=== PATIENT | male | born 1960 | race Caucasian/White ===

== ENCOUNTER 2025-08-13 06:55 | Emergency (ER) | payer OTHER, SELFPAY ==
[2025-08-13 06:58] VITALS: BP 164/96
--- NOTE | 2025-08-13 07:18 | ED.GENMED ---
History of Present Illness
General
Chief Complaint: Cold/Flu/URI Symptoms
Source: patient
Exam Limitations: none
Time Seen by Provider: 08/13/25 07:02
Nursing documentation reviewed up to this point in time: agreed with
History of Present Illness
History of Present Illness:
Patient is a 64-year-old male with history hypertension who presents to the emergency department with multiple episodes of sneezing and throat irritation which started yesterday afternoon. 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
had multiple episodes of sneezing and states 'I think I sneezed 100 times'. He states that this started after moving a large desk with a seem to be a cloud of 'dust'.
He had a few additional periods of sneezing once he got home last night and then started to feel that his throat was 'swollen'. He denies any true sore throat odynophagia. He denies any shortness of breath, difficulty breathing, wheezing. He has
not had any nausea, vomiting, or abdominal pain.
When he woke this morning, he states that his blood pressure was elevated and he noticed a mild redness to his face. He denies any swelling of his lips or tongue. No rash elsewhere on his body. No fevers or known sick contacts.
Past History
Past History
ED Past Medical History: None
ED Past Surgical History: Orthopedic
Social History
Tobacco: Former smoker
Alcohol: None
Drug: None
Personal:
Living: with family
Employment: Employed
Review of Systems
Review of Systems
Allergies reviewed?: Yes
All Other Systems: ROS reviewed and negative except as documented in HPI and ROS
Phy Exam
Physical Exam
Physical Exam:
Vitals: Hypertensive, otherwise vital signs stable. Afebrile
General: Patient is very well appearing, no acute distress
Skin: Warm and dry, no rashes or lesions
Head: Normocephalic, atraumatic. Very faint erythema of temporal region bilaterally.
Eyes: Sclera nonicteric. EOMs intact. No periorbital edema. No nystagmus.
Throat: Uvula midline, no edema. No evidence of PULP REFINER OPERATOR or tonsillar exudates. No tongue deviation or swelling of lips. Protecting airway, handling oral secretions. No stridor. Speech clear.
Neck: Normal ROM, no cervical spine tenderness, no meningismus
Cardiac: Regular rate and rhythm, no murmurs.
Pulm: Normal respiratory effort, no wheezes, rales, rhonchi heard on exam
Abdomen: No abdominal tenderness.
Extremities: No evidence of cyanosis or edema
Neuro: AAOx3. Grossly intact.
Psychiatric: Normal affect.
Course
Orders/Labs/Results
Orders:
Orders
08/13/25 07:16
Ibuprofen [Motrin] 400 mg PO NOW STA
CR Soft Tissue Neck Urgent
Comment:
Reason For Exam: dysphagia
08/13/25 07:22
COVID-19 Antigen Urgent
Source: Nasal Swab
Influenza A+B Rapid Molecular Urgent
VICKEY Source: Nasal Swab
Specimen Description:
08/13/25 07:32
Dexamethasone [Decadron] 10 mg PO NOW STA
Vital Signs
Initial and Last Documented VS:
Initial Vital Signs
Temp Pulse Resp BP Pulse Ox
98.2 F 66 16 164/96 98
08/13/25 06:58 08/13/25 06:58 08/13/25 06:58 08/13/25 06:58 08/13/25 06:58
Last Documented Vital Signs
Temp Pulse Resp BP Pulse Ox
97.8 F 64 18 149/88 96
08/13/25 07:30 08/13/25 09:51 08/13/25 07:30 08/13/25 09:47 08/13/25 09:48
MDM/Problems Addressed
Differential Diagnosis Includes:
Limited to: Viral illness, allergic rhinitis, contact allergy, chemical exposure, allergic reaction, etc.
MDM/Problems Addressed:
64-year-old male with 1 day of sneezing and throat irritation. No fevers, difficulty breathing, GI symptoms. Vitals and physical exam as above. Patient very well-appearing, in no apparent distress. Heart regular rate and rhythm. Lungs are clear
bilaterally. He has no obvious rash. No evidence of periorbital, lip, or tongue swelling. His uvula is midline. No evidence of PULP REFINER OPERATOR. No erythema or obvious edema of neck. He is handling his oral secretions and has no stridor.
Differential broad. Symptoms seem most consistent with possible allergic irritation from exposure in clients home yesterday. No evidence of anaphylaxis.
ED plan: Will check viral swabs, soft tissue neck x-ray to ensure patent airway. Will give Motrin and dose of Decadron. Patient did take Benadryl prior to arrival.
Update: Viral swabs negative. Soft tissue neck x-ray reveals some tracheal deviation which appears to be positional and likely related to scoliosis. He was noted to possibly have a right sided aortic arch after discussion with radiologist�this was
noted in the past. He is not having any current dysphagia and feel this is likely an incidental finding. Patient remains very well-appearing and in no distress. He is not toxic. Symptoms have mildly improved during duration of stay in emergency
department. Likely mild allergy. Again�no evidence of anaphylaxis. Will have patient follow-up with primary care. Very strict return precautions discussed. Patient comfortable with plan.
Chronic conditions affecting care:
N/A
Acute Exacerbation and/or Progression of Chronic Illness:
N/A
*Pulse Oximetry
SaO2: 98
Oxygen Mode of Delivery: Room air
Patient hypoxic: no
*EKG
Interpreted by ED Provider?: NA
*Supervisor Cytology Interpretation
Rate: Supervisor Cytology- N/A
*Critical Care Note
Total Time (30-74mins, 75-104mins- exclusive of procedures): Not Applicable
ED Attending Note
-
Portions of this chart may have been created with voice recognition software.� Occasional wrong word or��sound alike� substitutions may have occurred due to the inherent limitations of voice recognition software.
Discharge Plan
Departure
Patient Disposition: Home (Routine Discharge)
Date of Disposition: 08/13/25
Time of Disposition: 09:42
Patient with high blood pressure during this ER visit?: Yes
Covid-19: Negative COVID-19
Discharge Problem:
Throat irritation, Sneezing
Instructions: Allergic reaction - ED (DC), BLOOD PRESSURE
Prescriptions:
No Action
No Current Medications
cyclobenzaprine 10 MG tablet
10 mg PO TIDPRN PRN (Reason: back pain) Qty: 13 0RF
methylprednisolone [Medrol ([place])] 4 MG tablets,dose pack
4 tab PO . DIRECT Qty: 1 0RF
Referrals:
Maik Zamudio MD [Family Provider, Family Practice] - Follow up in 5-7 days
Activity Restrictions/Additional Instructions:
RETURN TO THE EMERGENCY DEPARTMENT WITH ANY FEVER, CHILLS, SWELLING OF EYES, MOUTH OR TONGUE, DIFFICULTY BREATHING OR SWALLOWING, NEW RASH, WORSENING IN CURRENT SYMPTOMS, OR ANY OTHER CONCERNS
- As discussed�your viral testing was negative today in the emergency department. The x-ray showed mild deviation of your trachea which appears to be positional/related to possible scoliosis. It was also found that you may have a right sided
aortic arch. Please follow-up with your primary care provider for outpatient CTA of your chest if indicated.
-Your symptoms may be secondary to a mild allergic reaction versus viral illness.
- You were given a dose of oral steroid today in the emergency department. This should continue to work over the next few days. You can take Motrin and/or Benadryl as needed for persistent symptoms.
- Follow-up with your primary care for further evaluation/management to ensure that your symptoms are improving
Monitor your symptoms closely and return to the emergency department with any acute worsening/new symptoms or any other concerns
Interventions
Interventions:
*Risk Screen - Suicide Last Done: 08/13/25 06:58
*General Assessment Last Done: 08/13/25 07:26
*Neglect/Abuse Screening Last Done: 08/13/25 07:26
*ED- Fall Risk Assessment Last Done: 08/13/25 07:26
*ED COVID-19 Vaccine History Last Done: 08/13/25 07:26
*ED Influenza Vaccine History Last Done: 08/13/25 07:26
*Nursing Disposition Last Done: 08/13/25 09:51
ED- Pulmonary Assessment Last Done: 08/13/25 07:35
Discharge Date and Time
Discharge Date/Time: 08/13/25 09:52
Print Language: VIET[place]ESE
[2025-08-13] MEDS: MOTRIN 400 MG PO (07:22)
[2025-08-13 07:25] VITALS: BMI 29.7
[2025-08-13 07:30] VITALS: BP 140/70
[2025-08-13 07:33] VITALS: BP 140/70
[2025-08-13] MEDS: DECADRON 10 MG PO (07:37)
[2025-08-13 07:58] LABS: COVID-19 Antigen Negative (Negative)
[2025-08-13 08:00] VITALS: BP 134/77
[2025-08-13 09:47] VITALS: BP 149/88
== END 2025-08-13 09:52 | disposition home or self-care (01) ==
LOC: EMR 06:55
PROVIDERS: Physician Assistant; EMERGENCY PHYSICIAN Student in an Organized Health Care Education/Training Program; FAMILY PHYSICIAN Family Medicine
DX: R07.0 Pain in throat (principal); R06.7 Sneezing; I10 Essential (primary) hypertension; Z87.891 Personal history of nicotine dependence
CPT/HCPCS: 99283; 70360; 87502; 87811